=== PATIENT | female | born 1995 | race Caucasian/White ===

== ENCOUNTER 2018-11-09 05:30 | Day surgery (SDC) | payer OTHER ==
[2018-11-09] MEDS ORDERED: DEXTROSE 5%-LR 1,000 ML IV (06:00)
[2018-11-09 06:28] LABS: ADD MAN DIFF? NO
[2018-11-09] MEDS: LACTATED RINGER'S 1,000 ML IV ×2 (06:33→08:48)
[2018-11-09 06:39] LABS: WHITE BLOOD COUNT 8.8 10^3/ul (4.8-10.8)
[2018-11-09 06:39] LABS: BASOPHILS % 0.5 % (0.0-2.0); EOSINOPHILS # 0.3 10^3/ul (0.0-0.5); EOSINOPHILS % 3.4 % (0.0-7.0); HEMATOCRIT 34.8 % (37.0-47.0); HEMOGLOBIN 11.4 g/dl (12.0-16.0); LYMPHOCYTES # 2.8 10^3/ul (0.8-2.9); LYMPHOCYTES % 31.7 % (15.0-51.0); MEAN CORPUSCULAR HEMOGLOBIN 29.3 pg (29.0-33.0); MEAN CORPUSCULAR HGB CONC 32.8 g/dl (32.0-37.0); MEAN CORPUSCULAR VOLUME 89.5 fl (82.0-101.0); MEAN PLATELET VOLUME 9.3 fl (7.4-10.4); MONOCYTE # 0.7 10^3/ul (0.3-0.9); NEUTROPHIL # 4.9 10^3/ul (1.6-7.5); NEUTROPHILS % 55.9 % (39.0-77.0); PLATELET COUNT 245 10^3/UL (140-415); RED BLOOD COUNT 3.89 10^6/ul (4.20-5.40); RED CELL DISTRIBUTION WIDTH 11.9 % (11.5-14.5)
[2018-11-09 06:59] LABS: INR 0.94; PROTIME 12.7 Sec (11.9-14.9)
[2018-11-09 07:00] LABS: PARTIAL THROMBOPLASTIN TIME 27.8 Sec (23.0-35.0)
[2018-11-09] MEDS ORDERED: FENTAnyl 50 MCG/ML VIAL (07:30)
[2018-11-09] MEDS ORDERED: LIDOCAINE 2% (SDV) 5 ML INJ (07:32)
[2018-11-09] MEDS ORDERED: PROPOFOL 20 ML (07:32)
[2018-11-09] MEDS: CEFAZOLIN 2 GM/50 ML (PMX) 50 ML IVPB (07:45)
[2018-11-09] MEDS ORDERED: GLYCOPYRROLATE 0.4 MG INJ (07:56)
[2018-11-09] MEDS ORDERED: ONDANSETRON 4 MG INJ (07:56)
[2018-11-09] MEDS ORDERED: DEXAMETHASONE 4 MG/ML 5 ML INJ (07:56)
[2018-11-09] MEDS ORDERED: FENTAnyl 50 MCG/ML VIAL IV ×2 (08:30)
[2018-11-09] MEDS: HYDROmorphONE 1 MG/5 ML IV SYRINGE IV ×3 (08:43→08:57)
[2018-11-09] MEDS: OXYCODONE/ACETAMINOPHEN (5/325) TAB PO (08:43)
[2018-11-09] MEDS: ONDANSETRON 4 MG INJ IV (08:43)
[2018-11-09] MEDS ORDERED: KETOROLAC 30 MG INJ (08:57)
[2018-11-09] MEDS: KETOROLAC 30 MG INJ IV ×2 (09:02→09:03)
== END 2018-11-09 10:13 | disposition home or self-care (01) ==
LOC: SDS 05:30
DX: N92.1 Excessive and frequent menstruation with irregular cycle (principal); D25.9 Leiomyoma of uterus, unspecified; R10.2 Pelvic and perineal pain; N85.00 Endometrial hyperplasia, unspecified
CPT/HCPCS: 58120; 84703; 85025; 85610; 85730; 88305